=== PATIENT | male | born 1970 | race Caucasian/White ===

== ENCOUNTER 2021-06-30 20:03 | Emergency (ER) | payer OTHER, MEDICARE ==
[~2021-06-30] VITALS: Ht 177.8 cm; Wt 109.0 kg
[2021-06-30 20:12] VITALS: BP 173/119
[2021-06-30 20:15] VITALS: BP 197/121
[2021-06-30 20:38] LABS: HEMATOCRIT 45.9 % (39.0-50.0); HEMOGLOBIN 15.5 g/dl (14.0-18.0); IMMATURE GRANULOCYTES 0.1 % (0.0-5.0); MEAN CELL VOLUME 94.8 fL CALC (80.0-100.0); MEAN CORPUSCULAR HGB CONC 33.8 g/dL CAL (32.0-36.0); NEUT# 6.82 thou/uL (1.82-7.42); RED BLOOD COUNT 4.84 mill/uL (4.70-6.10)
[2021-06-30 20:58] LABS: ACT PARTIAL THROMBO TIME 23.4 SECONDS (20.0-32.5); ALBUMIN 4.7 g/dL (3.2-5.0); ALKALINE PHOSPHATASE 125 u/l (38-126); AMYLASE 62 u/l (30-110); ANION GAP 17 (6-22 (CALC)); BILIRUBIN, TOTAL 0.8 mg/dL (0.0-1.4); BUN 19 mg/dL (9-20); BUN/CREATININE RATIO 15 (12-20 (CALC)); CARBON DIOXIDE 23 mmol/l (22-30); CHLORIDE 107 mmol/l (95-108); CREATININE 1.3 mg/dL (0.7-1.3); GFR 58 ML/MIN (>=60 (CALC)); GFR FOR AFR.AMER. > 60 ML/MIN (>=60 (CALC)); LIPASE 107 u/l (23-300); POTASSIUM 3.5 mmol/l (3.5-5.1); SGOT/AST 43 u/l (17-59); SODIUM 143 mmol/l (137-146); TOTAL PROTEIN 8.1 g/dL (6.3-8.2)
[2021-06-30 21:03] LABS: D-DIMER 2.04 mg/L (0.19-0.60)
[2021-06-30 21:04] VITALS: BP 138/97
[2021-06-30 21:07] LABS: MYOGLOBIN 58 ng/mL (0 - 121)
[2021-06-30 21:16] VITALS: BP 143/87
[2021-06-30 21:31] VITALS: BP 130/88
[2021-06-30 21:45] VITALS: BP 138/91
[2021-06-30 23:59] LABS: URINE BILIRUBIN - DIPSTICK NEGATIVE (NEGATIVE); URINE BLOOD DIPSTICK NEGATIVE (NEGATIVE); URINE COLOR YELLOW; URINE GLUCOSE - DIPSTICK NEGATIVE (NEGATIVE); URINE KETONE NEGATIVE (NEGATIVE); URINE LEUK ESTERASE NEGATIVE (NEGATIVE); URINE PROTEIN - DIPSTICK NEGATIVE (NEG-TRACE); URINE UROBILINOGEN - DIPSTICK 0.2 E.U./dL (0.2)
[2021-07-01] MEDS ORDERED: TRAMADOL HCL50 MG PO (00:06)
[2021-07-01] MEDS ORDERED: VOLTAREN75 MG PO (00:06)
[2021-07-01] MEDS ORDERED: LISINOP/HCTZ1 TAB PO (00:06)
[2021-07-01 00:11] LABS: URINE NITRITE - DIPSTICK NEGATIVE (Negative)
== END 2021-07-02 00:30 | disposition home or self-care (01) | DRG 313 ==
LOC: ED 20:03
PROVIDERS: Family Medicine
DX: R07.89 Other chest pain (principal); S16.1XXA Strain of muscle, fascia and tendon at neck level, initial encounter; I10 Essential (primary) hypertension; V89.2XXA Person injured in unspecified motor-vehicle accident, traffic, initial encounter
CPT/HCPCS: Q9967

== ENCOUNTER 2024-01-02 17:08 | Emergency (ER) | payer MEDICARE ==
[~2024-01-02] VITALS: Ht 177.8 cm; Wt 104.0 kg
[2024-01-02] VITALS (15 sets, daily range): BP systolic 124–170; BP diastolic 78–96
[~2024-01-02 17:08] MED LIST: LISINOP/HCTZ1 TAB PO; TRAMADOL HCL50 MG PO; VOLTAREN75 MG PO
[2024-01-02] MEDS ORDERED: GLUCAGON HCL (Rdna) 1 MG VIAL IM ONE (17:25)
[2024-01-02] MEDS ORDERED: ONDANSETRON 4 MG/TAB ODT PO ONE (17:25)
[2024-01-02] MEDS ORDERED: GLUCAGON HCL (Rdna) 1 MG VIAL IV ONE (18:55)
[2024-01-02] MEDS ORDERED: SODIUM CHLORIDE 0.9% 1,000 ML IV ONE (19:25)
[2024-01-02] MEDS ORDERED: GLUCAGON HCL (Rdna) 1 MG VIAL ONE ×2 (19:52→19:55)
== END 2024-01-02 20:35 | disposition home or self-care (01) ==
LOC: ED 17:08
DX: R13.10 Dysphagia, unspecified (principal)
CPT/HCPCS: J1610